=== PATIENT | female | born 1955 | race Caucasian/White ===

== ENCOUNTER 2024-11-12 07:32 | Day surgery (SDC) | payer MEDICARE, OTHER, SELFPAY ==
[2024-11-12] VITALS (15 sets, daily range): BP systolic 116–159; BP diastolic 60–118; BMI 33.3
[2024-11-12] MEDS: NSS 240 ML IV (08:22)
[2024-11-12] MEDS: NSS 1000 IV (12:44)
--- NOTE | 2024-11-12 18:23 | ITS.CL.PN ---
[facility] - Procedure Note
Procedure
Procedure Note:
CARDIAC CATHETERIZATION REPORT
Date of Procedure: 11/12/2024
Referring: Dr. Mekhi El MD
Indication: Severe aortic stenosis, preoperative evaluation prior to planned SAVR
PROCEDURE: coronary angiography
ACCESS: 6F right radial artery (closure: radial band)
CATHETERS
1. 6F JR4
2. 6F JL3.5
MODERATE SEDATION: 25 minutes of moderate sedation was utilized. An independent medical and health services manager was present to assist with and help manage the patient's level of consciousness and physiologic status.
CORONARY ANGIOGRAPHY
Dominance: right
LM: Large with mild distal tapering.
LAD: Large vessel giving rise to a early large bifurcating D1/ramus and moderate caliber D2 before wrapping around the apex. There is a focal 30-40% stenosis in the proximal aspect of the D1/ramus and otherwise mild luminal irregularities only.
LCx: Moderate caliber vessel giving rise to a single large branching OM.
RCA: Moderate caliber vessel giving rise to a small RPDA and several small RPL branches.
RADIATION: dose 359 mGy; DAP 21.1 Gy*cm2; fluoroscopy time 5.6 min
CONCLUSION: Nonobstructive coronary artery disease in a right dominant system
Copy to: Dr. Pepe Hernandez MD (equal opportunity specialist); Dr. Mekhi El MD (CT surgeon); Ana Cristina Harris NP (PCP)
Signed: Navid Miramontes MD, PhD
== END 2024-11-12 13:10 | disposition home or self-care (01) ==
LOC: CATH 07:32
PROVIDERS: ATTENDING PHYSICIAN Student in an Organized Health Care Education/Training Program; FAMILY PHYSICIAN Nurse Practitioner Adult Health; OTHER PHYSICIAN Internal Medicine Cardiovascular Disease
DX: I25.10 Atherosclerotic heart disease of native coronary artery without angina pectoris (principal); I35.0 Nonrheumatic aortic (valve) stenosis; I08.3 Combined rheumatic disorders of mitral, aortic and tricuspid valves; I10 Essential (primary) hypertension; E78.5 Hyperlipidemia, unspecified; Z79.82 Long term (current) use of aspirin
CPT/HCPCS: 99152; 99153; C1894; 93454; Q9967

== ENCOUNTER 2024-12-31 04:56 | Inpatient (IN) | payer MEDICARE, OTHER, SELFPAY ==
[2024-12-17 12:17] VITALS: BMI 32.4
[2024-12-17 12:59] LABS: Hematocrit 39.6 % (37.0-47.0); Hemoglobin 14.2 g/dL (12.0-16.0); Mean Corp Hgb Conc. 35.9 g/dL (33.0-37.0); Mean Corpuscular Volume 88.2 fL (81.0-99.0); Nucleated Red Blood Cells % 0 %; Platelet Count 246 10^3/uL (130-400); Red Cell Dist. Width 12.6 % (11.5-14.5)
[2024-12-17 13:12] LABS: INR 1.02; PT 13.7 Sec (11.4-14.6)
[2024-12-17 13:21] LABS: ALT (SGPT) 26 U/L (0-35); AST (SGOT) 24 U/L (14-36); Albumin 4.9 g/dl (3.5-5.0); Alkaline Phosphatase 51 U/L (38-126); Blood Urea Nitrogen 17 mg/dl (7-17); Calcium 9.8 mg/dl (8.4-10.2); Carbon Dioxide 20 mmol/L (22-30); Chloride 111 mmol/L (98-107); Estimated Creatinine Clearance 88 ml/min; Glucose 106 mg/dl (70-99); Potassium 4.7 mmol/L (3.5-5.1); Sodium 140 mmol/L (135-145); Total Protein 8.1 g/dl (6.3-8.2); eGFR > 60.00
[2024-12-17 13:34] LABS: Glycohemoglobin (HgbA1c) 5.3 % (4.0-5.6)
[2024-12-17 13:54] LABS: Urine Character Clear (Clear)
--- NOTE | 2024-12-17 14:22 | CM ---
spoke to pt in PAT's, we discussed preop AVR teaching including sternal and driving restrictions. She is prev indep, lives with her husb in a 2 story home with 6 steps to enter. she denies any dme's. she has the cardiac surgery educ book, siap and
instructions. she is agreeable to a f/u visit fromt he ct transitional care nurse after dc. plan is for AVR 12/31, cm role explained and all questions answered.
[2024-12-31] VITALS (7 sets, daily range): BP systolic 82–105; BP diastolic 43–69; BMI 32.4; BMI 31.9
--- NOTE | 2024-12-31 05:20 | PTCARENOTE ---
admitted pt into 2266. pt confirmed 2 showers and NPO since midnight. pt clipped, washed with CHG, abo obtained, full admission and med rec completed. all questions answered. pt did take lisinopril yesterday, CTPA notified. awaiting CVOR .
[2024-12-31] MEDS: MAGNESIUM OXIDE 500 MG PO (05:27)
[2024-12-31] MEDS: PROTONIX 40 MG PO (05:27)
[2024-12-31] MEDS: LOPRESSOR 25 MG PO (05:27)
--- NOTE | 2024-12-31 06:14 | W.CVOR.SURPR ---
CVOR Surgeon Immed Pre Op
-
I have examined this patient prior to performance of the scheduled procedure.
The patient's condition is unchanged from the time of the dictated/written History and
Physical and the patient is able to undergo the scheduled procedure.
AVR (biological)
[2024-12-31 07:38] LABS: ACT+ - POC 112 Seconds (82-134)
[2024-12-31 07:43] LABS: Urine Character Clear (Clear)
--- NOTE | 2024-12-31 08:21 | CM ---
Reviewed chart. Mrs. Alfaro is in the operating room today. Prior to admission she resdies with her spouse in a two story home with six steps to enter. Prior to admission she was independent with ambulation and adls. She does not have any DME
in the home. Medical work-up in progress. The discharge plan is to return home with her spouse and a home visit by the Transitional Care Nurse when medically stable.
[2024-12-31 08:22] LABS: ACT+ - POC 543 Seconds (82-134)
[2024-12-31 08:42] LABS: B.E. - POC -2.0 mmol/L; Glucose - POC 120 mg/dl (70-99); HCO3 - POC 23 mmol/L (21-28); Hematocrit - POC 34 % PCV (37-47); Hemodilution- POC No; Hemoglobin Calculated - POC 11.5; Ionized Calcium - POC 1.18 mmol/L (1.15-1.33); Lactate - POC 0.95 mmol/L (0.36-0.75); O2 Saturation %Calculated-POC 97.1 % (94-98); PCO2 - POC 40 mmHg (35-48); PO2 - POC 94 mmHg (83-108); Potassium - POC 3.7 mmol/L (3.5-5.1); Sodium - POC 143 mmol/L (136-145); Specimen Type - POC Arterial; pH - POC 7.37 (7.35-7.45)
[2024-12-31 08:58] LABS: ACT+ - POC 629 Seconds (82-134)
[2024-12-31 09:36] LABS: B.E. - POC 1.6 mmol/L; Glucose - POC 152 mg/dl (70-99); HCO3 - POC 25 mmol/L (21-28); Hematocrit - POC 31 % PCV (37-47); Hemodilution- POC Yes; Hemoglobin Calculated - POC 10.5; Ionized Calcium - POC 0.94 mmol/L (1.15-1.33); Lactate - POC 0.38 mmol/L (0.36-0.75); O2 Saturation %Calculated-POC 99.9 % (94-98); PCO2 - POC 35 mmHg (35-48); PO2 - POC 331 mmHg (83-108); Potassium - POC 5.3 mmol/L (3.5-5.1); Sodium - POC 141 mmol/L (136-145); Specimen Type - POC Arterial; pH - POC 7.46 (7.35-7.45)
[2024-12-31 09:46] LABS: ACT+ - POC 145 Seconds (82-134)
[2024-12-31 09:59] LABS: B.E. - POC -1.5 mmol/L; Glucose - POC 187 mg/dl (70-99); HCO3 - POC 24 mmol/L (21-28); Hematocrit - POC 26 % PCV (37-47); Hemodilution- POC Yes; Hemoglobin Calculated - POC 8.9; Ionized Calcium - POC 1.32 mmol/L (1.15-1.33); Lactate - POC 1.99 mmol/L (0.36-0.75); O2 Saturation %Calculated-POC 83.4 % (94-98); PCO2 - POC 43 mmHg (35-48); PO2 - POC 50 mmHg (83-108); Potassium - POC 4.7 mmol/L (3.5-5.1); Sodium - POC 142 mmol/L (136-145); Specimen Type - POC Arterial; pH - POC 7.35 (7.35-7.45)
[2024-12-31 10:10] LABS: B.E. - POC -2.0 mmol/L; Glucose - POC 171 mg/dl (70-99); HCO3 - POC 24 mmol/L (21-28); Hematocrit - POC 26 % PCV (37-47); Hemodilution- POC Yes; Hemoglobin Calculated - POC 8.7; Ionized Calcium - POC 1.24 mmol/L (1.15-1.33); Lactate - POC 2.06 mmol/L (0.36-0.75); O2 Saturation %Calculated-POC 97.4 % (94-98); PCO2 - POC 44 mmHg (35-48); PO2 - POC 102 mmHg (83-108); Potassium - POC 4.6 mmol/L (3.5-5.1); Sodium - POC 142 mmol/L (136-145); Specimen Type - POC Arterial; pH - POC 7.34 (7.35-7.45)
--- NOTE | 2024-12-31 10:29 | W.PN.CT.SURG ---
CT Surgery Operative Note
-
CARDIAC SURGERY OPERATIVE REPORT
Preoperative Diagnosis: Aortic valve stenosis with symptoms
Postoperative Diagnosis: Same
Procedure(s) Performed:
1. Ajit sternotomy the third intercostal space, T'd to the right
2. Surgical aortic valve replacement [27 mm bioprosthesis]
3. Percutaneous femoral venous cannulation under KATT guidance and Seldinger technique
4. Placement of temporary ventricular pacing wire
5. Transesophageal echocardiography
Date of Surgery: 12/31/2024
Comorbidities:
1. Severe aortic valve stenosis, functional bicuspid
2. Hypertension
3. Hyperlipidemia
4. History of PVCs and NSVT, status post ablation
5. Morbidly obese BMI of 32
Attending Surgeon: Mekhi El MD, MS
Scrub and Circulating RNs: Collette Lees RN, Nabila López RN
Assistants: ANAID Larose
Anesthesiology: Brian Keys MD and Yeimy Varela CRNA
Processing Clerk: Dakota Palumbo CCP
Anesthesia: GETA
EBL: per perfusion records
Products: None
CPB Time: 61 minutes
Aortic Cross Clamp Time: 53 minutes
Indication(s) for Procedures: This is a 69-year-old female who had increasing shortness of breath with activity and is found to have severe aortic valve stenosis. Her mean gradient was well over 50 and given her good clinical state and relatively
young age, she was referred for surgery as part of her lifetime management for her severe aortic valve stenosis.
Aortic Valve Description: Heavily calcified aortic valve leaflets with infiltration into the annulus particularly towards the aorto mitral curtain. There was bulky left right coronary cusp fusion. The left and right coronary ostia in the normal
anatomic positions.
Findings: Her left ventricular ejection fraction preoperatively was normal at 60% with no significant regional wall motion abnormalities. She did have a mild to moderate degree of left ventricular hypertrophy that was concentric. Following surgery
her EF remained the same at 60 to 65% with no new regional wall motion abnormalities. Aortic valve was heavily calcified with infiltration into the annulus. This was particularly bad towards the aorto mitral curtain which was debrided accordingly.
A total of 13 nonpledgeted 2-0 TiCron sutures were placed circumferentially from LVOT through annulus through sewing cuff with a 27 mm bioprosthetic valve. This was then parachuted into place and secured with core knots. The aorta was closed in
double layer in the usual fashion. There was no paravalvular leak at the conclusion of the case. Cardiac function was normal after short period of ventricular pacing she was back into her sinus rhythm in the 50s to 60s. She did not require any
blood products and was not requiring any inotropic support. In fact she was hypertensive requiring vasodilatory agents.
Specimen(s): Aortic valve leaflet.
Prosthesis:
1. 27 mm Jack [employer]'s Resilia aortic valve, serial #[id number].
Description of Procedure: The patient was taken to the operating room. Their identity and procedure to be performed were verified and they were positioned supine on the operating table. Induction via general anesthesia with endotracheal intubation
was performed and central venous access and arterial monitoring were inserted. A preoperative transesophageal echocardiogram was performed to assess cardiac function and valvular function. The patient was then prepped and draped from chin to feet in
a sterile fashion. A preoperative time-out was performed with all members of the team present. A upper midline chest incision was performed along with ajit sternotomy. The innominate vein was isolated. Full heparinization was given (a total of
40,000 units). We created a pericardial well. The aortic cannulation site was chosen where it was soft, pliable, and free of calcium. The EOPA cannula was used with KATT guidance and serial dilations. Common femoral vein access was done under
ultrasound guidance using Seldinger technique. Venous cannulation was done under KATT guidance. The arterial cannula was inserted in the ascending aorta. The arterial cannula line had an appropriate bounce and correlating pressures with test dosing.
Next, a root vent/antegrade cannula was inserted into the ascending aorta. The ACT was confirmed to be over 400 and retrograde autologous priming was performed before commencing cardiopulmonary bypass. The pulmonary artery was away from
the aorta to facilitate a clamp site and aortomy. The aortic cross-clamp was applied after decreasing the flow on the bypass and mean arterial pressure. A total of 1.2L initial dose of antegrade Del-Nido cardioplegia solution was given and planned
for re-dosing every 75 minutes as necessary. There was rapid electro-mechanical arrest of the heart at 400 cc of cardioplegia. I did have to intermittently vent through the root vent in order to decompress the LV as there was a mild degree of
aortic valve insufficiency. The left ventricle was observed for distention on echocardiogram and manual palpation. Cold slush was placed into the pericardial well and cooled to 34 degrees centigrade.
Carbon dioxide was used to flood the field. We manually identified the location of the right coronary take off. An aortotomy was made approximately 2cm above the sinotubular junction. The location of both left and right coronary vessels were
visualized in the root.The leaflets were excised and sent for pathological assessment. The annulus was debrided of any calcium being mindful of the annulus and membranous septum. The root and left ventricular outflow tract were thoroughly irrigated
to remove any debris. A total of 13 Non-pledgeted 2-0 TiCron annular sutures were placed [id number] circumferentially. These were brought through the sewing cuff of the prosthetic valve which as then parachuted into place. The left and right
coronary ostia were visualized and were unobstructed by the valve. A Cor-Knot device was used to secure the annular sutures. The valve was inspected and was well seated. The aortotomy was approximated with 4-0 prolene in two layers. De-airing
maneuvers were performed and temporary bipolar ventricular pacing wires were placed on the base of the right ventricle. The patient was placed in a Trendelenburg position and flows on bypass were lowered. The aortic cross clamp was removed and flows
were slowly brought back up. The aortotomy appeared hemostatic. Transesophageal echocardiography revealed no paravalvular leak and appropriate prosthetic function. Once de-airing was satisfactory, the root vent was removed. After verifying
acceptable parameters, we initiated weaning from cardiopulmonary bypass. Once we were off cardiopulmonary bypass, the venous cannula was clamped and removed. A test dose of protamine was administered and the patient was monitored for any adverse
reaction before resuming protamine. Once half of the protamine dose was delivered, pump suckers were turned off and the systolic blood pressure was lowered for aortic decannulation. The aortic cannula was removed and pursestrings were tied down. All
cannulation sites were oversewn with a 4-0 prolene. The aortotomy suture line was inspected and hemostasis was confirmed. Mediastinal hemostasis was obtained. One 19Fr Johnnie drains were placed within the pericardium. The sternum was approximated
with 2 #7 stainless steel wires and 2 #7 double stainless steel wiresl. Fascia was approximated with #1 vicryl suture. The subcutaneous, dermis and epidermis were closed in layers in a running fashion. The femoral venous access site was closed with
a large buttressed pursestring. The skin wound was cleansed and dressed.
All instrument, sponge, and needle counts were confirmed to be correct x 2 at the end of the operation. The patient was transferred to the cardiac intensive care unit in critical but stable condition.
I, Dr. Mekhi El, was present, scrubbed for, and performed all critical elements of this procedure.
Mekhi El MD, MS
Cardiothoracic Surgeon
[facility]
This operative dictation was created using the [employer] dictation system. Please excuse any grammatical, typographical, or 'sound alike' errors
[2024-12-31 10:47] LABS: Hematocrit 29.0 % (37.0-47.0); Hemoglobin 10.7 g/dL (12.0-16.0); Platelet Count 156 10^3/uL (130-400)
[2024-12-31 10:48] LABS: B.E. -3.7 mmol/L; HCO3 22.1 mmol/L (21-28); O2 Saturation % 99.3 % (94-98); PCO2 42 mmHg (32-35); PO2 99 mmHg (83-108); Potassium 4.7 mMOL/L (3.5-5.1); Sodium 136 mMOL/L (136-145)
[2024-12-31 10:48] LABS: Glucose - Point of Care 176 mg/dl (70-99)
[2024-12-31 10:56] LABS: INR 1.45; PT 17.9 Sec (11.4-14.6)
[2024-12-31 10:57] LABS: APTT 33.1 Sec (23.4-35.0)
[2024-12-31] MEDS: NSS 500 IV (11:16)
[2024-12-31] MEDS: CALCIUM GLUCONATE 100 IV (11:16)
[2024-12-31] MEDS: LR 250 ML IV (11:16)
[2024-12-31 11:22] LABS: Blood Urea Nitrogen 17 mg/dl (7-17); Estimated Creatinine Clearance 75 ml/min; Glucose 162 mg/dl (70-99); Magnesium 2.9 mg/dl (1.6-2.3)
[2024-12-31] MEDS: NEURONTIN PO ×2 (11:26→17:04)
--- NOTE | 2024-12-31 11:44 | W.PN.CD ---
Addendum entered and electronically signed by John Ramon MD 12/31/24 13:41:
Patient seen and examined in collaboration with ANIMAL CONTROL SPECIALIST; agree with below.
- Patient underwent bioprosthetic aortic valve replacement today; currently intubated, on low-dose Levophed.
- alarm security or surveillance monitor.
- Routine postsurgical care as directed by CT surgery.
- Will follow.
Original Note:
Today's Communication / Plan
-
post-op management per CTS, weaning off meds/vent
Impression / Plan
-
Severe - s/p bio AVR on 12/31/[address] El.
- post-op management per CTS.
- still intubated/sedated on vent.
- hemodynamically stable.
HTN - stable.
- on Levophed, weaning.
- monitor.
HLD - stable.
- on Lipitor, continue.
Physical Exam
Vital Signs/Labs
Vital Signs
Temp Pulse Resp Pulse Ox
96.9 F L 61 12 98
12/31/24 11:00 12/31/24 10:45 12/31/24 10:45 12/31/24 10:45
12/30/24 12/31/24 01/01/25
06:59 06:59 06:59
Actual Weight 174 lb 6.17 oz
12/31/24 10:34
PT 17.9 Sec (11.4-14.6) H 12/31/24 10:34
INR 1.45 12/31/24 10:34
APTT 33.1 Sec (23.4-35.0) 12/31/24 10:34
Magnesium 2.9 mg/dl (1.6-2.3) H 12/31/24 10:34
Physical Exam
Constitutional: Comfortable
EENT: Anicteric
Cardiovascular: Rhythm & rate is regular
Respiratory: Other (intubated on vent/sedated)
GI: Soft and Normal bowel sounds
Neuro/Psych: Other (sedated on vent intubated)
Other: Skin (warm, dry)
Data Reviewed
-
Date of Service: December 31, 2024
Medical Decision Making: Reviewed Test Results
EKG: Tracing Personally Visualized and interpreted
Medical Tests (PFT, Pathology etc): Report Reviewed by me (cath 11/12/24 no obstructive CAD)
Labs: Labs Reviewed by me
[2024-12-31 11:59] LABS: Glucose - Point of Care 139 mg/dl (70-99)
--- NOTE | 2024-12-31 12:00 | PTCARENOTE ---
Pt received from CVOR @ 1045; Sedated and intubated;Pupils round, reactive, and equal; Normal sinus rhythm on monitor w/ 1; VSS; Epicardial pacemaker present? with pacer settings ?/?/?; Venous sheath present?; DP and radial pulses present; Lungs
clear; ETT size 8 positioned and secured at 22 cm right lip; Ventilator settings SIMV 12/400/8 FiO2 60%; CTx1 to -20 cm wall suction draining bloody drainage - no air leak, tidaling, or crepitus noted; Normoactive BS; Martinez catheter in place
draining red urine;Sternal Midline Incision CDI; Edema present x4 extremeties ; A-line in left radial artery - line zeroed and level; Bayron present in right Cordis; Levo/insulin/precedex infusing; See nursing flowsheets for further details
[2024-12-31 13:18] LABS: Glucose - Point of Care 118 mg/dl (70-99)
--- NOTE | 2024-12-31 13:28 | W.PN.UPDATE ---
Update Note
Progress Note Update
69-year-old female electively admitted on 12/31/2024 for aortic valve replacement due to severe aortic stenosis.
IV fluids: 1300
U.O.:� 500
Blood:� none
Wires:� bipolar V-wire
Drips: Precedex, Levo @ 1
�
NEURO: sedated, pupils +2mm B/L
RESP: #8OT @20cm> 450/60%//8. Lungs clear B/L. #19F Johnnie mediastinal/L pleural (10cc on arrival) chest tubes to -20cm suction. Sanguineous drainage
CV: RRR +S1, S2, no S3, no�rub, no murmur. Dermabond to median mini-sternotomy. RIJ w/Calvin locked @ 45cm. PA 45/13; CVP 10
ABD: obese, round, soft, no BS
EXT: no edema, +2/4 DP pulses B/L, no femoral bruit, XX radial A-line intact; Right groin stitch intact
: Martinez with clear yellow urine
�
A/P: POD #0 s/p mini sternotomy AVR #27mm Inspiris Resilia
KATT: EF�
- wean and extubate
- will need instruction regarding antibiotic prophylaxis for dental and invasive procedures
- insulin infusion x24h (not diabetic)
�
# acute surgical blood loss anemia-expected
- initial HB 10.7>trend CBC
�
�# HTN
- Cardene>transition to beta-cathie when tolerating solids
# Hyperlipidemia
- resume�home Lipitor 30mg daily
# Class I obesity (BMI 32)
- need nutrition counseling regarding caloric intake restriction
# Osteoporosis
- continue Fosamax 70mg weekly
[2024-12-31 14:01] LABS: Glucose - Point of Care 129 mg/dl (70-99)
[2024-12-31 14:18] LABS: B.E. -2.8 mmol/L; HCO3 21.9 mmol/L (21-28); O2 Saturation % 100.0 % (94-98); PCO2 37 mmHg (32-35); PO2 114 mmHg (83-108); Potassium 4.6 mMOL/L (3.5-5.1); Sodium 137 mMOL/L (136-145)
[2024-12-31 14:21] LABS: Hematocrit 29.6 % (37.0-47.0); Hemoglobin 10.8 g/dL (12.0-16.0); Platelet Count 145 10^3/uL (130-400)
[2024-12-31 15:16] LABS: Glucose - Point of Care 115 mg/dl (70-99)
--- NOTE | 2024-12-31 15:34 | CON.INTV ---
Addendum entered and electronically signed by Pily Almeida MD 01/01/25 12:53:
01/01
Patient transferred to telemetry service. Agency Trainer service will sign off, please call as needed
Original Note:
Consultation
Consultation Request
Date/Time Consultation Requested: 12/31/2024
Date/Time Consultation Performed: 12/31/2024
Medical History
-
Chief Complaint: Aortic stenosis
History of Present Illness:
Patient is a [id number]-year-old female with known history of hypertension, hyperlipidemia as well as aortic stenosis with mild proximal ascending aortic dilation. Patient also has prior history of SVT s/p ablation. Patient was evaluated by
surgical service as outpatient and was recommended to have surgical AVR. Patient was admitted to the hospital for elective aortic valve replacement with a bioprosthesis, and postop surgery was admitted to cardiovascular ICU. Agency Trainer consult
was requested for further input.
Past medical history. Hypertension, hyperlipidemia, severe aortic stenosis, mild ascending aortic dilation, paroxysmal SVT s/p ablation. Osteoarthritis
Surgical history. Ablation for paroxysmal SVT, 2013.
Family history. Heart disease in father.
Social history.
Allergies / Home Medications
Allergies
Allergy/AdvReac Type Severity Reaction Status Date / Time
No Known Allergies Allergy Unverified 12/15/24 08:50
Home Medications
�Medication �Instructions �Recorded �Confirmed �Last Taken �Type
alendronate 70 mg tablet 70 mg PO FR Osteoporosis 11/12/24 12/31/24 12/30/24 10:00 History
atorvastatin 20 mg tablet 20 mg PO QPM High Cholesterol 11/12/24 12/31/24 12/30/24 08:00 History
lisinopril 10 mg tablet 10 mg PO DAILY Blood Pressure 11/12/24 12/31/24 12/30/24 08:00 History
metoprolol succinate 50 mg 50 mg PO BID Blood Pressure 11/12/24 12/31/24 12/30/24 18:00 History
tablet,extended release 24 hr
multivitamin 1 tab PO DAILY Supplement 11/12/24 12/31/24 12/24/24 08:00 History
vitamin B complex (Complex B-100 1 tab PO DAILY Supplement 11/12/24 12/31/24 12/30/24 08:00 History
tablet,extended release)
calcium polycarbophil 625 mg 1,250 mg PO DAILY Gastrointestinal 12/15/24 12/31/24 12/30/24 08:00 History
tablet (FiberCon) Issue
omega 2-vrc-ooh-fish oil 1,200 mg 2,400 cap PO DAILY Supplement 12/15/24 12/31/24 12/30/24 08:00 History
(144 mg-216 mg) capsule (Fish Oil)
Review of Systems
-
Unable to Obtain full review of systems at this time due to: Patient Intubation
Vitals / Labs / Diagnostic Testing
Vital Signs
Temp Pulse Resp Pulse Ox
97.7 F 65 19 100
12/31/24 14:00 12/31/24 14:15 12/31/24 14:15 12/31/24 14:15
Lab Data
12/31/24 14:08
12/31/24 10:34
Laboratory Results
12/31/24 12/31/24
10:34 14:08
PT 17.9 H
INR 1.45
APTT 33.1
pH 7.33 L 7.38
pCO2 42 H 37 H
pO2 99 114 H
HCO3 22.1 21.9
O2 Delivery Level
Diagnostic Testing:
Physical Exam
-
HEENT: Normocephalic
Cardiovascular: S1/S2 and Peripheral Edema (1+ pedal edema )
Respiratory: Non-Labored Respirations
GI: Soft and Non Distended
Neurology: Awake and Other (Drowzy but responds to stimulation )
Skin: Warm
General: Comfortable
Assessment
-
Patient is a 69-year-old female with known history of severe aortic stenosis, s/p surgical aortic valve replacement, bioprosthetic, POD # 0
Titrated off pressors per protocol. Currently MAP of 71, CVP of 7.
ECHO reviewed with normal function
PA catheter readings reviewed, , mean of 20.
Management of chest tubes per primary service
Intubated/off Precedex now, tolerating SBT well
Pain control
RASS goal of 0 to -1
Current vent settings: Pressure support ventilation, 5/5. Pulling about 450 tidal volume, respiratory rate around 14/min.
AB.5/26/135.
CXR with no obvious opacities/infiltrates, low lung volumes, ETT in good position, lines/tubes in place
Anticipate extubation soon
Maintain supplement oxygen as needed
No prior history of pulmonary disease
Prior PFTs reviewed
Can add nebulizers if needed
Aspiration precautions
Encouraged incentive spirometry, OOB/ambulation/early mobility
Advance diet as tolerated following extubation
GI prophylaxis: Protonix
Monitor critical I/O's
Martinez/chest tube output
Hb/platelets postoperatively, mild drift
Trend CBC for now
Can transfuse if indicated for Hb <7, plt <50 in surgical patients
DVT prophylaxis including SCDs
Insulin protocol initiated and ongoing
Transition to SQ/off as indicated per team
Other medical diagnoses:
- HTN
- HLD
- H/o Paroxysmal SVT, s/p ablation 2013
Critical Care time 62 mins -- The patient is admitted for acute critical illness for the treatment of vital organ failure and/or prevention of further life-threatening conditions. Total care includes time spent in review of history, physical exam,
medications, hemodynamic/ventilator parameters, laboratory data, imaging and discussion with house staff, pharmacy, respiratory therapy, merchandise adjustment clerk, and nursing
Data:
Chest CT 12/2024: Ascending aorta has short axis diameter of 3.9 cm at the level of the right main pulmonary artery, in the upper range of normal, top normal considered 4.0 cm.
The lungs appear clear.
Mild fatty infiltration of the visualized liver.
[facility] 10/2024: CONCLUSION: Nonobstructive coronary artery disease in a right dominant system
ECHO 09/2024: 1. NL BiV SYST FXN.
2. SEVERE . (SHEA 0.9; MEAN 55 mm Hg).
[2024-12-31 16:11] LABS: B.E. -1.9 mmol/L; HCO3 20.3 mmol/L (21-28); O2 Saturation % 100.0 % (94-98); PCO2 26 mmHg (32-35); PO2 135 mmHg (83-108)
[2024-12-31 16:18] LABS: O2 Therapy %Oxygen/Room Air 40
--- NOTE | 2024-12-31 16:45 | PTCARENOTE ---
PT extubated @ 1630 to 6L NC, PT AAOx4 responding appropriately and following all commands
[2024-12-31 16:57] LABS: Glucose - Point of Care 119 mg/dl (70-99)
[2024-12-31] MEDS: DILAUDID 0.5 MG IV ×3 (16:59→23:04)
[2024-12-31] MEDS: LOW STRENGTH ASPIRIN 81 MG PO (16:59)
[2024-12-31 19:26] LABS: Glucose - Point of Care 107 mg/dl (70-99)
[2024-12-31] MEDS: LIPITOR 20 MG PO (19:54)
[2024-12-31] MEDS: ANCEF 5 IV (19:54)
[2024-12-31] MEDS: SENOKOT-S 1 TABLET PO (19:54)
[2024-12-31] MEDS: TYLENOL 1000 MG PO (20:30)
[2024-12-31] MEDS: ROXICODONE 5 MG PO (20:32)
[2024-12-31] MEDS: ZOFRAN 4 MG IV (21:08)
[2024-12-31] MEDS: BACTROBAN 2% OINTMENT 1 APPLIC NASAL (21:09)
[2024-12-31 21:27] LABS: Glucose - Point of Care 102 mg/dl (70-99)
[2024-12-31] MEDS: PACERONE PO (22:46)
[2024-12-31] MEDS: TYLENOL PO (22:49)
[2024-12-31] MEDS: NEURONTIN 100 MG PO (23:03)
[2024-12-31] MEDS: FLEXERIL 5 MG PO (23:03)
[2024-12-31 23:04] LABS: Glucose - Point of Care 112 mg/dl (70-99)
[2025-01-01] VITALS (19 sets, daily range): BP systolic 89–131; BP diastolic 49–91; PULSE 89; O2SAT 91; BMI 32.8
--- NOTE | 2025-01-01 00:29 | W.PN.CT ---
Addendum entered and electronically signed by Wil Arias MD 01/01/25 09:26:
[facility] 2267:� POD#1 s/p AVR (#27 Inspiris)
No major overnight events.� Cardene weaned to OFF.� De-lined.� AVSS.� 2L.� GTTS: none.� CT: M: 100/195.� UO: 440/970.� Neuro: intact.
-��������� D/C galeana
-��������� Maintain mediastinal CTs
-��������� D/C insulin gtt
-��������� Diruesis later today versus tomorrow
-��������� OOB/IS/ambulate
Original Note:
Today's Communication / Plan
-
Plan:
-No major issues overnight. Hemodynamically and neurologically intact without focal deficits
-Successfully extubated 12/31/24 @ 1715
-Was on and off Cardene gtt last night. Currently off all drips but insulin per protocol
-Last CI 2.89, MVO2 65.2%, U/O since OR 1070 mL
-A bit orthostasis when OOB this AM. Will place BB on hold
-Cont. current meds (ASA, Plavix, Amiodarone, Lopressor, Lipitor)
-Monitor chest tube output: med/pericardium 35/35
-D/C'd Jennifer and Bouton @ 0500
-D/C'd galeana catheter @ 0600
-Maintain temporary wires (will pull likely tomorrow)
-Encourage use of IS
-Wean off of O2 as tolerated
-OOB into chair/Ambulate
-Likely home 1-2 days
Assessment / Plan
-
Assessment:
-S/P Ajit sternotomy the third intercostal space, T'd to the right/ Surgical aortic valve replacement [27 mm bioprosthesis], by Dr. El, 12/31/24, pod#1
-Severe aortic valve stenosis, functional bicuspid
-LVEF 55-60%
-Hypertension
-Hyperlipidemia
-History of PVCs and NSVT, status post ablation, 2013
-Class 1 obesity BMI of 32
-OA
-Acute postop blood loss/Anemia (stable without transfusion)
-Acute postop atelectasis
-Acute postop respiratory alkalosis
-Acute postop hypovolemia with subsequent hypervolemia
-Acute postop orthostatic hypotension
Discussed patient care with: Cardiology, Nursing, Respiratory Therapy, Pharmacy and Care Team
Subjective
Procedure
S/P Ajit sternotomy the third intercostal space, T'd to the right/ Surgical aortic valve replacement [27 mm bioprosthesis], by Dr. El, 12/31/24
-
Date of Service: January 01, 2025
Pt c/o mild incisional pain, otherwise feels well
Objective Data
-
PT 17.9 Sec (11.4-14.6) H 12/31/24 10:34
INR 1.45 12/31/24 10:34
APTT 33.1 Sec (23.4-35.0) 12/31/24 10:34
Vital Signs
Vital Signs
Temp Pulse Resp BP Pulse Ox
98.3 F 77 16 82/43 1
12/31/24 23:00 12/31/24 23:00 12/31/24 23:00 12/31/24 23:00 12/31/24 23:00
CT Intake/Output/Weight
12/31/24 12/31/24 01/01/25
06:59 18:59 06:59
Intake Total 1396.6 / 1859.5 462.9 / 1859.5
Output Total 625 / 910 285 / 910
Balance 771.6 / 949.5 177.9 / 949.5
SaO2: 98 (2L)
Physical Exam
-
General: Awake, Oriented and AOx3
Cardiovascular: Regular rate & rhythm, No Murmurs, No Rub and No Gallop
Respiratory: Decreased Breath Sounds
Sternum: Stable
Incision: Clean, Dry, Intact and Dressing Intact
Extremities: Other (+trace edema)
Data Reviewed
-
Lab Results: Results Reviewed
Medications: Active Meds Reviewed
Chest X-Ray: Report Reviewed and Image Reviewed
ECG: Report Reviewed and Image Reviewed
[2025-01-01 00:52] LABS: Glucose - Point of Care 111 mg/dl (70-99)
[2025-01-01] MEDS: ROXICODONE 5 MG PO ×3 (01:09→13:44)
[2025-01-01] MEDS: ANCEF 5 IV ×2 (01:10→10:27)
[2025-01-01 03:09] LABS: Glucose - Point of Care 90 mg/dl (70-99)
[2025-01-01] MEDS: DILAUDID 0.5 MG IV (03:09)
[2025-01-01 03:48] LABS: INR 1.17; PT 15.2 Sec (11.4-14.6)
[2025-01-01 03:51] LABS: Blood Urea Nitrogen 23 mg/dl (7-17); Calcium 8.3 mg/dl (8.4-10.2); Carbon Dioxide 24 mmol/L (22-30); Chloride 111 mmol/L (98-107); Estimated Creatinine Clearance 87 ml/min; Glucose 84 mg/dl (70-99); Magnesium 2.3 mg/dl (1.6-2.3); Potassium 4.3 mmol/L (3.5-5.1); Sodium 140 mmol/L (135-145); eGFR > 60.00
[2025-01-01 03:56] LABS: Hematocrit 27.2 % (37.0-47.0); Hemoglobin 9.8 g/dL (12.0-16.0); Mean Corp Hgb Conc. 36.0 g/dL (33.0-37.0); Mean Corpuscular Volume 88.9 fL (81.0-99.0); Platelet Count 132 10^3/uL (130-400); Red Cell Dist. Width 12.7 % (11.5-14.5)
[2025-01-01 05:39] LABS: Glucose - Point of Care 129 mg/dl (70-99)
[2025-01-01] MEDS: BACTROBAN 2% OINTMENT 1 APPLIC NASAL ×2 (06:35→20:05)
[2025-01-01] MEDS: TYLENOL 1000 MG PO ×3 (06:35→22:11)
[2025-01-01] MEDS: CALCIUM GLUCONATE 100 IV (06:45)
[2025-01-01 07:06] LABS: Glucose - Point of Care 118 mg/dl (70-99)
--- NOTE | 2025-01-01 07:39 | W.PN.ANS.POP ---
Anesthesia Post Operative
- Anesthesia Post Op Note
Vital Signs Stable-See Nursing Note: Yes
Airway Patent: Yes
Adequate Pain Control: Yes
Change in Mental Status: No
Current Postoperative Nausea & Vomiting: No
Anesthesia Complications: No
General Anesthetic Recall: No
Unplanned Admission: No
Post Op Hydration Adequate: Yes
--- NOTE | 2025-01-01 08:08 | PTCARENOTE ---
Pt received from outgoing RN, POD 1 AVR, oob in chair, insulin gtt till later today, NSR, VSS, RA, MS CT, Vwire connected to lissett smalls this AM DTV @ 04/1300, rt ROSIO lee.
[2025-01-01 08:45] LABS: Glucose - Point of Care 104 mg/dl (70-99)
[2025-01-01] MEDS: LIDOCAINE 4% PATCH TOPICAL (08:45)
[2025-01-01] MEDS: PROTONIX 40 MG PO ×2 (09:00→09:01)
[2025-01-01] MEDS: MAGNESIUM OXIDE 500 MG PO ×2 (09:00→20:04)
[2025-01-01] MEDS: NEURONTIN PO ×3 (09:00→15:46)
[2025-01-01] MEDS: FLEXERIL 5 MG PO (09:00)
[2025-01-01] MEDS: PACERONE 200 MG PO ×3 (09:01→22:12)
[2025-01-01] MEDS: SENOKOT-S 1 TABLET PO ×2 (09:01→20:02)
[2025-01-01] MEDS: FEOSOL 325 MG PO (09:01)
[2025-01-01] MEDS: VITAMIN C 500 MG PO (09:01)
[2025-01-01] MEDS: LOW STRENGTH ASPIRIN 81 MG PO (09:01)
[2025-01-01] MEDS: NSS IV (09:41)
[2025-01-01 11:18] LABS: Glucose - Point of Care 155 mg/dl (70-99)
[2025-01-01] MEDS: LOPRESSOR 12.5 MG PO ×2 (11:41→20:04)
--- NOTE | 2025-01-01 12:13 | PTCARENOTE ---
Pt reassessment unchanged from previous, vss, ra, rt IJ cordis, Vwire insulated, MSctx2, dced insulin gtt.
[2025-01-01] MEDS: LASIX 40 MG IV (12:31)
--- NOTE | 2025-01-01 12:38 | CON.CAR ---
Consultation
Consultation Request
Date/Time Consultation Requested: 12/31/24
Date/Time Consultation Performed: 01/01/25
Requesting Provider: Kathleen Birmingham
Performing Provider: Yenny Lopez
Reason for Consultation: s/p AVR
Medical History
-
Chief Complaint: S/p AVR
History of Present Illness:
Patient is a 69-year-old pleasant female, with past medical history of essential hypertension, hyperlipidemia, SVT s/p ablation, aortic stenosis with mild proximal ascending aorta dilatation who was admitted to the hospital for elective aortic valve
replacement with a bioprosthesis. Admitted to cardiovascular ICU for postop recovery.
Cardiology consultation requested for follow-up of AVR.
She has been feeling well, denies any shortness of breath, reports mild incisional pain but overall looks good.
Past Medical History
Past Medical History: Arrhythmias (SVT s/p ablation), HTN, Hypercholesterolemia and Valvular Disease (Swear aortic stenosis SHEA 0.9 :mean 55 mmHg s/p bioprosthetic AVR on 12/31/2024, mild TR mild MR, metabolic syndrome, arthritis)
Past Surgical History: Cardiac (S/p ablation 2013 for paroxysmal SVT, s/p AVR 01/01/2025)
Social History
Tobacco: Non-Smoker
Alcohol: Occasional
Personal:
Living: With Family
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
Family History
Family History: Other (Mother has diabetes hypertension, father 85 years with hypertension/heart disease)
Allergies / Home Medications
Allergy/AdvReac Type Severity Reaction Status Date / Time
No Known Allergies Allergy Unverified 12/15/24 08:50
�Medication �Instructions �Recorded �Confirmed �Type
alendronate 70 mg tablet 70 mg PO FR Osteoporosis 11/12/24 12/31/24 History
atorvastatin 20 mg tablet 20 mg PO QPM High Cholesterol 11/12/24 12/31/24 History
lisinopril 10 mg tablet 10 mg PO DAILY Blood Pressure 11/12/24 12/31/24 History
metoprolol succinate 50 mg 50 mg PO BID Blood Pressure 11/12/24 12/31/24 History
tablet,extended release 24 hr
multivitamin 1 tab PO DAILY Supplement 11/12/24 12/31/24 History
vitamin B complex (Complex B-100 1 tab PO DAILY Supplement 11/12/24 12/31/24 History
tablet,extended release)
calcium polycarbophil 625 mg 1,250 mg PO DAILY Gastrointestinal 12/15/24 12/31/24 History
tablet (FiberCon) Issue
omega 7-aat-tgx-fish oil 1,200 mg 2,400 cap PO DAILY Supplement 12/15/24 12/31/24 History
(144 mg-216 mg) capsule (Fish Oil)
Review of Systems
-
All other systems: Negative unless noted
Physical Exam
Vital Signs
Temp Pulse Resp BP Pulse Ox
97.6 F 90 18 125/59 95
01/01/25 12:00 01/01/25 12:00 01/01/25 11:00 01/01/25 12:00 01/01/25 12:00
Lab Results
01/01/25 03:16
01/01/25 03:16
Physical Exam
General: No Apparent Distress and Comfortable
Respiratory: Clear; Negative Wheezes, Crackles or Rhonchi
Cardiac: S1/S2 and Regular Rhythm; Negative Murmur, Rub, Peripheral Edema or Calf Tenderness
GI: Soft and Non Tender
Musculoskeletal: No Clubbing and No Cyanosis
Skin: Warm, Dry and Other (Incision clean dry with intact dressing)
Neuro: Awake and AO x 3
Psych: Calm
Impression / Plan
-
Impression
Patient is a 69-year-old female with past medical history of hypertension, hyperlipidemia, SVT s/p ablation 2013, Severe - s/p bio AVR on 12/31/[address] El.
Cardiology consulted for postop follow-up.
Assessment/plan
#Severe aortic stenosis s/p bio AVR
- No major events overnight, hemodynamically stable
- Reports mild incisional pain
- PT/OT-started mild exercises today that helped her feel better
-On low-sodium diet
-On telemetry review, brief run of SVT, self terminated, will continue to monitor
-Continue to monitor telemetry
-Continue aspirin, atorvastatin, amiodarone, metoprolol
- Cardiology will continue to follow
# Postop acute blood loss anemia
-No blood transfusion required
-Hemoglobin 9.8, monitor and trend H&H
#Hypertension
- stable.
- Off vasopressors
- monitor.
#HLD
- stable.
- on Lipitor, continue.
--- NOTE | 2025-01-01 13:05 | W.PN.CD ---
Addendum entered and electronically signed by John Ramon MD 01/01/25 13:29:
Patient seen and examined in collaboration with PGY-2 Resident; agree with below.
- 69-year-old status-post bioprosthetic AVR on 12/31/2024:
- Sinus rhythm; very brief run of PSVT on telemetry.
- Exam: Heart regular rate and rhythm, normal S1-S2, no murmur/rub/gallop; lungs CTA bilaterally; abdomen soft; no edema.
- A/P:
- Status-post bioprosthetic AVR (12/31/2024): Hemodynamically stable. Continue routine postoperative care as directed by CT surgery.
- Hypertension: Blood pressure stable/controlled.
- Hyperlipidemia: Continue statin.
Original Note:
Documented by User: Federico Lantigua MD, Resident 01/01/25 13:10
Today's Communication / Plan
-
Continue to trend H & H
Continue telemetry
PT/OT
Impression / Plan
-
Impression
Patient is a 69-year-old female with past medical history of hypertension, hyperlipidemia, SVT s/p ablation 2013, Severe - s/p bio AVR on 12/31/[address] El.
Cardiology consulted for postop follow-up.
Assessment/plan
#Severe aortic stenosis s/p bio AVR
- No major events overnight, hemodynamically stable
- Reports mild incisional pain
- PT/OT-started mild exercises today that helped her feel better
-On low-sodium diet
-On telemetry review, brief run of SVT, self terminated, will continue to monitor
-Continue aspirin, atorvastatin, amiodarone, metoprolol
- Cardiology will continue to follow
# Postop acute blood loss anemia
-No blood transfusion required
-Hemoglobin 9.8, monitor and trend H&H
#Hypertension
- stable.
- Off vasopressors
- monitor.
#HLD
- stable.
- on Lipitor, continue.
Physical Exam
Vital Signs/Labs
Vital Signs
Temp Pulse Resp BP Pulse Ox
97.6 F 90 18 125/59 95
01/01/25 12:00 01/01/25 12:00 01/01/25 11:00 01/01/25 12:00 01/01/25 12:00
12/31/24 01/01/25 01/02/25
06:59 06:59 06:59
Actual Weight 81.2 kg
01/01/25 03:16
01/01/25 03:16
PT 15.2 Sec (11.4-14.6) H 01/01/25 03:16
INR 1.17 01/01/25 03:16
APTT 33.1 Sec (23.4-35.0) 12/31/24 10:34
Magnesium 2.3 mg/dl (1.6-2.3) 01/01/25 03:16
Physical Exam
Constitutional: No acute distress and Comfortable
Cardiovascular: Rhythm & rate is regular, Pedal edema is absent, Murmur/rub/gallop absent and Rub absent
Respiratory: Respiratory effort normal and Lungs clear to auscul.
GI: Soft and Non tender
Neuro/Psych: Alert and AO x 3
Other: Skin (warm dry, dressing dry and intact)
Data Reviewed
-
Date of Service: January 01, 2025

Documented by User: John Ramon MD 01/01/25 13:27
Data Reviewed
-
EKG: Tracing Personally Visualized and interpreted (Sinus rhythm, brief PSVT)
Medical Tests (PFT, Pathology etc): Discussed with Physician and Discussed with Nurse
Labs: Labs Reviewed by me
[2025-01-01] MEDS: FERRLECIT 110 MG IV (13:45)
--- NOTE | 2025-01-01 16:01 | PTCARENOTE ---
pt reassessment unchanged from previous, vss, ra, nsr, Rt Ij cordis, ambulate, voiding, pain management, msct x1
[2025-01-01] MEDS: TORADOL 15 MG IV ×2 (16:24→22:24)
[2025-01-01 16:34] LABS: Glucose - Point of Care 153 mg/dl (70-99)
[2025-01-01] MEDS: LIPITOR 20 MG PO (18:05)
[2025-01-01] MEDS: REMOVE LIDOCAINE PATCH REMOVE (20:05)
--- NOTE | 2025-01-01 20:27 | PTCARENOTE ---
Assumed care of patient at 1900. Patient found resting in bed at time of assessment. Patient is AOx4, follows commands appropriately, moves all extremities. Lung sounds are diminished at the bases, saO2 86% on RA placed on 3L via NC saO2 improved to
93%. Patient has one mediastinal chest tube draining red sanguineous to atrium with wall suction. Heart sound are audible, there is a rub present on auscultation, v wires are present but insulated, and patient is SR on the monitor. Pulses are normal
palpable and there is +1 BLE edema and +2 BUE edema. Patient has hypoactive BS in all four quadrants and is voiding in the bathroom. There is a sternal incision approx with surg adhesive ESTIVEN supported by surgical bra. Patient also has groin puncture
with 4x4 dressing that is CDI. There is a R IJ cordis receiving KVO and RA 18G PIV for intermittent infusion. Call rincon within reach.
[2025-01-01] MEDS: NEURONTIN 100 MG PO (22:11)
[2025-01-02] VITALS (11 sets, daily range): BP systolic 104–139; BP diastolic 53–93; BMI 32.5
--- NOTE | 2025-01-02 | PTCARENOTE ---
Patient reassessed. Remains SR on the monitor. Toradol for pain at HS. Ambulated to bathroom with assistx1 without incident. Call rincon within reach.
[2025-01-02] MEDS: ROXICODONE 2.5 MG PO ×2 (04:13→23:35)
[2025-01-02 04:42] LABS: Hematocrit 24.8 % (37.0-47.0); Hemoglobin 9.0 g/dL (12.0-16.0); Mean Corp Hgb Conc. 36.3 g/dL (33.0-37.0); Mean Corpuscular Volume 90.8 fL (81.0-99.0); Platelet Count 113 10^3/uL (130-400); Red Cell Dist. Width 12.8 % (11.5-14.5)
--- NOTE | 2025-01-02 04:53 | PTCARENOTE ---
Patient reassessed. Remains SR on the monitor. Toradolx1 and Hanh 2.5 for pain management. AM hygiene care provided. OOB to chair.
[2025-01-02 05:04] LABS: Blood Urea Nitrogen 25 mg/dl (7-17); Calcium 7.9 mg/dl (8.4-10.2); Carbon Dioxide 29 mmol/L (22-30); Chloride 109 mmol/L (98-107); Estimated Creatinine Clearance 76 ml/min; Glucose 111 mg/dl (70-99); Magnesium 2.2 mg/dl (1.6-2.3); Potassium 4.0 mmol/L (3.5-5.1); Sodium 138 mmol/L (135-145); eGFR > 60.00
--- NOTE | 2025-01-02 05:38 | W.PN.CT ---
Addendum entered and electronically signed by Wil Arias MD 01/02/25 09:26:
I saw and examined the patient.
The PA's note was reviewed and I agree with the note.
Comment:
Pain complaints, minor dizziness when getting OOB, BB held
Hgb 9.0 - no need to transfuse currently
D/C pacing wires
D/C mediastinal CT
Diuresis
Original Note:
Today's Communication / Plan
-
Plan:
-No major issues overnight. Hemodynamically and neurologically intact without focal deficits
-Off all drips
-Still c/o lightheadedness/dizziness with standing, consider 1u PRBC with lasix to follow, h/h 9.0/24.8 (13.2/39.6 preop), plts 113, down from 132 yesterday
-Placed AM BB on hold
-Consider d/c of chest tube: med/pericardium 35/160
-Will cut temporary PW
-Cont. current meds (ASA, Plavix, Amiodarone, Lopressor, Lipitor)
-Encourage use of IS
-Wean off of O2 as tolerated
-Has right groin stitch
-OOB into chair/Ambulate
-Likely home tomorrow
Assessment / Plan
-
Assessment:
-S/P Ajit sternotomy the third intercostal space, T'd to the right/ Surgical aortic valve replacement [27 mm bioprosthesis], by Dr. El, 12/31/24, pod#2
-Severe aortic valve stenosis, functional bicuspid
-LVEF 55-60%
-Hypertension
-Hyperlipidemia
-History of PVCs and NSVT, status post ablation, 2013
-Class 1 obesity BMI of 32
-OA
-Acute postop blood loss/Anemia (stable without transfusion)
-Acute postop thrombocytopenia (stable without active bleed)
-Acute postop atelectasis
-Acute postop respiratory alkalosis
-Acute postop hypovolemia with subsequent hypervolemia
-Acute postop orthostatic hypotension
Discussed patient care with: Cardiology, Nursing, Respiratory Therapy, Pharmacy and Care Team
Subjective
Procedure
S/P Ajit sternotomy the third intercostal space, T'd to the right/ Surgical aortic valve replacement [27 mm bioprosthesis], by Dr. El, 12/31/24
-
Date of Service: January 02, 2025
c/o pleuritic chest pain, some lightheadedness/dizziness with standing yesterday
Objective Data
-
Lab Results
01/02/25 04:23
01/02/25 04:23
PT 15.2 Sec (11.4-14.6) H 01/01/25 03:16
INR 1.17 01/01/25 03:16
APTT 33.1 Sec (23.4-35.0) 12/31/24 10:34
Vital Signs
Vital Signs
Temp Pulse Resp BP Pulse Ox
98.0 F 81 20 105/53 93
01/01/25 23:00 01/02/25 04:47 01/02/25 04:47 01/02/25 04:47 01/02/25 04:47
CT Intake/Output/Weight
01/01/25 01/01/25 01/02/25
06:59 18:59 06:59
Intake Total 746.0 / 2207.8 513.8 / 633.8 120 / 633.8
Output Total 540 / 1300 1425 / 1760 335 / 1760
Balance 206.0 / 907.8 -911.2 / -1126.2 -215 / -1126.2
SaO2: 93 (RA)
Physical Exam
-
General: Awake, Oriented and AOx3
Cardiovascular: Regular rate & rhythm, No Murmurs, No Rub and No Gallop
Respiratory: Decreased Breath Sounds (at bases, otherwise clear)
Sternum: Stable
Incision: Clean, Dry, Intact and Dressing Intact
Extremities: Other (+trace edema)
Data Reviewed
-
Lab Results: Results Reviewed
Medications: Active Meds Reviewed
Chest X-Ray: Report Reviewed and Image Reviewed
ECG: Report Reviewed and Image Reviewed
[2025-01-02] MEDS: TYLENOL 1000 MG PO ×3 (05:59→20:10)
[2025-01-02] MEDS: TORADOL 15 MG IV ×2 (05:59→12:37)
--- NOTE | 2025-01-02 07:28 | PTCARENOTE ---
Assisted patient to bathroom at approx 0600. Patient with successful void, then became dizzy, lightheaded. Noticeably diaphoretic. Assisted back into chair. Vital signs checked and stable. CT PA notified.
[2025-01-02] MEDS: FEOSOL 325 MG PO (08:44)
[2025-01-02] MEDS: SENOKOT-S 1 TABLET PO ×2 (08:44→20:11)
[2025-01-02] MEDS: NEURONTIN 100 MG PO (08:44)
[2025-01-02] MEDS: LOW STRENGTH ASPIRIN 81 MG PO (08:44)
[2025-01-02] MEDS: PROTONIX 40 MG PO (08:44)
[2025-01-02] MEDS: VITAMIN C 500 MG PO (08:45)
[2025-01-02] MEDS: MAGNESIUM OXIDE 500 MG PO ×2 (08:45→20:11)
[2025-01-02] MEDS: LIDOCAINE 4% PATCH 1 PATCH TOPICAL (08:45)
[2025-01-02] MEDS: PACERONE 200 MG PO ×3 (08:45→20:12)
[2025-01-02] MEDS: LOPRESSOR 12.5 MG PO ×2 (08:45→20:11)
[2025-01-02] MEDS: BACTROBAN 2% OINTMENT 1 APPLIC NASAL ×2 (08:46→20:13)
--- NOTE | 2025-01-02 09:46 | W.PN.CD ---
Today's Communication / Plan
-
- Remains stable status-post bioprosthetic AVR.
- In sinus rhythm on telemetry; no events overnight.
- Continue routine postoperative management as directed by CT surgery.
Impression / Plan
-
Impression
Patient is a 69-year-old female with hypertension, hyperlipidemia, SVT s/p ablation 2013, Severe - s/p bio AVR on 12/31/[address] El.
Cardiology consulted for postop follow-up.
Assessment/plan
#Severe aortic stenosis s/p bio AVR
- Remains stable status-post bioprosthetic AVR.
- In sinus rhythm on telemetry; no events overnight.
- Still with some incisional pain
- Continue aspirin, atorvastatin, amiodarone, metoprolol
- Continue routine postoperative management as directed by CT surgery.
#Hypertension
-Stable/controlled.
#HLD
- stable.
- on Lipitor, continue.
Physical Exam
Vital Signs/Labs
Vital Signs
Temp Pulse Resp BP Pulse Ox
98.0 F 91 20 106/64 94
01/01/25 23:00 01/02/25 09:00 01/02/25 08:00 01/02/25 08:45 01/02/25 08:00
01/01/25 01/02/25 01/03/25
06:59 06:59 06:59
Actual Weight 81.2 kg 80.5 kg
01/02/25 04:23
01/02/25 04:23
PT 15.2 Sec (11.4-14.6) H 01/01/25 03:16
INR 1.17 01/01/25 03:16
APTT 33.1 Sec (23.4-35.0) 12/31/24 10:34
Magnesium 2.2 mg/dl (1.6-2.3) 01/02/25 04:23
Physical Exam
Constitutional: No acute distress and Comfortable
EENT: Anicteric
Cardiovascular: Rhythm & rate is regular, Pedal edema is absent, Systolic murmur absent and S1S2 is normal
Respiratory: Respiratory effort normal and Lungs clear to auscul.
GI: Soft
Neuro/Psych: AO x 3
Other: Skin (Warm, dry, intact)
Data Reviewed
-
Date of Service: January 02, 2025
EKG: Tracing Personally Visualized and interpreted (Telemetry: Sinus rhythm)
Labs: Labs Reviewed by me
Critical Care Time (in minutes): 36
--- NOTE | 2025-01-02 09:58 | PTCARENOTE ---
Received patient for 7a-7p shift. Patient AAOx3, complains of sternal pain. VSS, NSR on cardiac cath technician. Pt oob in chair for breakfast. Voided without issues, returned to bed to d/c wires and CT. Patient maintained on 3L o2 via nc, pox 94%.
Occasional productive cough, harris sputum. Medications administered without issues. Tolerating po intake. Instructed patient to call for assistance prior to ambulation, patient verbalized understanding, demonstrates use of call rincon. Will continue to
monitor.
--- NOTE | 2025-01-02 13:57 | PTCARENOTE ---
Patient reassessed, vss. V wire cut and Chest tube d/c by CTPA Lidia. Medications administered as ordered. Patient ambulatory in room with assistance. Demonstrates use of call rincon system prior to ambulation. Will continue to monitor.
[2025-01-02] MEDS: FERRLECIT 110 MG IV (14:30)
[2025-01-02] MEDS: NSS 500 IV (14:31)
[2025-01-02] MEDS: LIPITOR 20 MG PO (17:25)
[2025-01-02] MEDS: MUCINEX 1200 MG PO ×2 (17:25→20:10)
[2025-01-02] MEDS: NEURONTIN PO ×3 (17:25→20:13)
[2025-01-02] MEDS: REMOVE LIDOCAINE PATCH 1 PATCH REMOVE (20:13)
--- NOTE | 2025-01-02 22:38 | PTCARENOTE ---
assumed care of patient @ 1900. received pt laying in bed, Aox3. VSS on RA. NSR on tele, +pulses +1 edema to uppers and lowers. Lungs clear, diminished on room air satting mid 90s. -BM, passing gas. voiding clear yellow urine in hat. MSI potato chip cooker machine, R
groin puncture site IRONER, CT dressing CDI. R IJ cordis with PIV both patent. pt resting comfortably in bed w call rincon within reach .
[2025-01-03] VITALS (10 sets, daily range): BP systolic 106–155; BP diastolic 57–72; PULSE 75; O2SAT 96–97; BMI 32.6
--- NOTE | 2025-01-03 | PTCARENOTE ---
pt c/o pain, 2.5 of robbin given instead of 5 d/t dizzyness earlier today
[2025-01-03] MEDS: TORADOL 15 MG IV (01:09)
--- NOTE | 2025-01-03 01:30 | PTCARENOTE ---
pt still with pain, stat dose of toradol ordered and given
--- NOTE | 2025-01-03 04:53 | W.PN.CT ---
Today's Communication / Plan
-
Plan:
-No major issues overnight. Hemodynamically and neurologically intact without focal deficits
-Off all drips
-Still c/o lightheadedness/dizziness with standing, h/h 9.1/25.6, up from 9.0/24.8 (13.2/39.6 preop), plts 135, up from 113
-Midodrine added 01/02
-Will replete calcium
-Will hold mag oxide for mg 2.5
-Cont. current meds (ASA, Plavix, Amiodarone, Lopressor, Lipitor)
-Encourage use of IS
-Has right groin stitch
-OOB into chair/Ambulate
-Likely home tomorrow
Assessment / Plan
-
Assessment:
-S/P Ajit sternotomy the third intercostal space, T'd to the right/ Surgical aortic valve replacement [27 mm bioprosthesis], by Dr. El, 12/31/24, pod#3
-Severe aortic valve stenosis, functional bicuspid
-LVEF 55-60%
-Hypertension
-Hyperlipidemia
-History of PVCs and NSVT, status post ablation, 2013
-Class 1 obesity BMI of 32
-OA
-Acute postop blood loss/Anemia (stable without transfusion)
-Acute postop thrombocytopenia (stable without active bleed)
-Acute postop atelectasis
-Acute postop respiratory alkalosis
-Acute postop hypovolemia with subsequent hypervolemia
-Acute postop orthostatic hypotension
Discussed patient care with: Cardiology, Nursing, Respiratory Therapy, Pharmacy and Care Team
Subjective
Procedure
S/P Ajit sternotomy the third intercostal space, T'd to the right/ Surgical aortic valve replacement [27 mm bioprosthesis], by Dr. El, 12/31/24
-
Date of Service: January 03, 2025
Pt c/o incisional pain, lightheadedness and weakness
Objective Data
-
PT 15.2 Sec (11.4-14.6) H 01/01/25 03:16
INR 1.17 01/01/25 03:16
APTT 33.1 Sec (23.4-35.0) 12/31/24 10:34
Vital Signs
Vital Signs
Temp Pulse Resp BP Pulse Ox
98 F 72 16 139/70 95
01/03/25 00:00 01/02/25 22:00 01/03/25 00:00 01/02/25 20:10 01/03/25 00:00
CT Intake/Output/Weight
01/02/25 01/02/25 01/03/25
06:59 18:59 06:59
Intake Total 120 / 633.8 340 / 400 60 / 400
Output Total 335 / 1760 1175 / 1575 400 / 1575
Balance -215 / -1126.2 -835 / -1175 -340 / -1175
SaO2: 95 (RA)
Physical Exam
-
General: Awake, Oriented and AOx3
Cardiovascular: Regular rate & rhythm, No Murmurs, No Rub and No Gallop
Respiratory: Decreased Breath Sounds (at bases, otherwise clear)
Sternum: Stable
Incision: Clean, Dry, Intact and Dressing Intact
Extremities: Other (+trace edema)
Data Reviewed
-
Lab Results: Results Reviewed
Medications: Active Meds Reviewed
Chest X-Ray: Report Reviewed and Image Reviewed
ECG: Report Reviewed and Image Reviewed
--- NOTE | 2025-01-03 05:00 | PTCARENOTE ---
pt walked to bathroom and then to chair, pt states she got dizzy while in the bathroom. BP stable. Pt c/o severe 10/10 pain, pt is crying d/t pain. CTPA says ok to give 5 of robbin. call rincon within reach .
[2025-01-03] MEDS: TYLENOL 1000 MG PO ×2 (05:05→13:45)
[2025-01-03] MEDS: ROXICODONE 5 MG PO ×3 (05:06→20:18)
[2025-01-03 05:41] LABS: Hematocrit 25.6 % (37.0-47.0); Hemoglobin 9.1 g/dL (12.0-16.0); Mean Corp Hgb Conc. 35.5 g/dL (33.0-37.0); Mean Corpuscular Volume 90.5 fL (81.0-99.0); Platelet Count 135 10^3/uL (130-400); Red Cell Dist. Width 12.7 % (11.5-14.5)
[2025-01-03 05:58] LABS: Blood Urea Nitrogen 18 mg/dl (7-17); Calcium 8.1 mg/dl (8.4-10.2); Carbon Dioxide 25 mmol/L (22-30); Chloride 110 mmol/L (98-107); Estimated Creatinine Clearance 88 ml/min; Glucose 106 mg/dl (70-99); Magnesium 2.5 mg/dl (1.6-2.3); Potassium 4.1 mmol/L (3.5-5.1); Sodium 138 mmol/L (135-145); eGFR > 60.00
[2025-01-03] MEDS: CALCIUM GLUCONATE 130 MG IV (06:46)
--- NOTE | 2025-01-03 07:50 | W.PN.CD ---
Today's Communication / Plan
-
- Pain control
- OOB and ambulate
- Possible discharge
Impression / Plan
-
Impression
Patient is a 69-year-old female with hypertension, hyperlipidemia, SVT s/p ablation 2013, Severe - s/p bio AVR on 12/31/[address] El.
\\
Assessment/plan
#Severe aortic stenosis s/p bio AVR
- Remains stable status-post bioprosthetic AVR.
- In sinus rhythm on telemetry; no events overnight.
- Still with some incisional pain
- Continue aspirin, atorvastatin, amiodarone, metoprolol
- Continue routine postoperative management as directed by CT surgery.
#Hypertension
-Stable/controlled.
#HLD
- stable.
- on Lipitor, continue.
Physical Exam
Vital Signs/Labs
Vital Signs
Temp Pulse Resp BP Pulse Ox
97.8 F 82 16 106/57 95
01/03/25 04:00 01/03/25 05:08 01/03/25 04:00 01/03/25 05:08 01/03/25 04:55
01/02/25 01/03/25 01/04/25
06:59 06:59 06:59
Actual Weight 80.5 kg 80.7 kg
01/03/25 05:13
01/03/25 05:13
PT 15.2 Sec (11.4-14.6) H 01/01/25 03:16
INR 1.17 01/01/25 03:16
APTT 33.1 Sec (23.4-35.0) 12/31/24 10:34
Magnesium 2.5 mg/dl (1.6-2.3) H 01/03/25 05:13
Physical Exam
Constitutional: No acute distress and Comfortable
EENT: Anicteric and Moist mucous membranes
Cardiovascular: Rhythm & rate is regular, Pedal edema is absent and JVD pressure is normal
Respiratory: Respiratory effort normal, Lungs clear to auscul. and Wheeze Absent
GI: Soft, Distention absent, Non tender and Normal bowel sounds
Neuro/Psych: Alert, Oriented and AO x 3
Data Reviewed
-
Date of Service: January 03, 2025
Medical Decision Making: Reviewed Test Results, Test Interpretation and Review of Case with other Provider
EKG: Tracing Personally Visualized and interpreted
Echo: Report Reviewed by me
Labs: Labs Reviewed by me
Old Records: Reviewed
[2025-01-03] MEDS: BACTROBAN 2% OINTMENT 1 APPLIC NASAL ×2 (08:07→20:14)
[2025-01-03] MEDS: LOPRESSOR 12.5 MG PO ×2 (08:08→20:15)
[2025-01-03] MEDS: PACERONE 200 MG PO ×2 (08:08→15:03)
[2025-01-03] MEDS: LOW STRENGTH ASPIRIN 81 MG PO (08:08)
[2025-01-03] MEDS: PROTONIX 40 MG PO (08:08)
[2025-01-03] MEDS: FEOSOL 325 MG PO (08:08)
[2025-01-03] MEDS: VITAMIN C 500 MG PO (08:08)
[2025-01-03] MEDS: MUCINEX 1200 MG PO ×2 (08:08→20:15)
[2025-01-03] MEDS: SENOKOT-S 1 TABLET PO ×2 (08:08→20:15)
[2025-01-03] MEDS: LIDOCAINE 4% PATCH 1 PATCH TOPICAL (08:09)
[2025-01-03] MEDS: NEURONTIN PO ×2 (08:14→15:07)
[2025-01-03] MEDS: FLEXERIL 5 MG PO ×2 (08:19→20:16)
[2025-01-03] MEDS: NSS IV (08:59)
--- NOTE | 2025-01-03 09:47 | PTCARENOTE ---
Patient received from second shift supervisor RN; AAOx3, responds spontaneously to RN and follows commands; VSS; NSR on monitor; Trace B/L LE and hand edema; +2 DP and radial pulses present; Shallow respirations; FELDER; Lungs diminished at bases; Frequent,
productive cough with thick, brown sputum; Patient passing gas but complains of some constipation at this time - laxatives given as scheduled; Patient urinating in bathroom; Surgical sites intact; PIVx1 - #20 RAC; RIJ Cordis present with KVO
infusing; See nursing documentation for further information
[2025-01-03] MEDS: MILK OF MAGNESIA 30 ML PO (12:09)
--- NOTE | 2025-01-03 13:29 | PTCARENOTE ---
Patient ambulating in hallways with cardiac rehab; At times, patient complaining of pain but refusing PRN pain medication at this time; patient resting comfortably in bed
[2025-01-03] MEDS: FERRLECIT 110 MG IV (13:46)
--- NOTE | 2025-01-03 16:30 | PTCARENOTE ---
Patient ambulating in hallways with RN; Reluctant but willing to take PRN Oxycodone for pain accordingly - with good effect; Patient ambulating in room independently and resting in bed comfortably at this time
[2025-01-03] MEDS: LIPITOR 20 MG PO (17:13)
[2025-01-03] MEDS: TYLENOL 650 MG PO (20:16)
[2025-01-03] MEDS: REMOVE LIDOCAINE PATCH 1 PATCH REMOVE (20:21)
--- NOTE | 2025-01-03 20:33 | PTCARENOTE ---
assumed care of patient at 1900. Patient alert and oriented, Follows all commands, rates pain 7/10 mostly on movement. PRN pain medication given with good results. Pain now controlled. Moves all extremities without issue, some generalized
weakness noted. Normal sinus rhythm on monitor, heart rate in 80-90's, BP stable.trace edema in lower extremities. Right IJ cordis and L A/C PIV patent. Lungs sound clear and diminished bilaterally, can become dyspneic on excursion. has strong
cough. Bowel sounds present, appetite low, no BM. Voids without issue. Surgical site CDI.
[2025-01-03] MEDS: NEURONTIN 100 MG PO (22:09)
[2025-01-03] MEDS: PACERONE 400 MG PO (22:09)
[2025-01-03] MEDS: TYLENOL PO (22:32)
[2025-01-04] VITALS (11 sets, daily range): BP systolic 113–137; BP diastolic 61–101; PULSE 82–88; O2SAT 94–97; BMI 32.3
[2025-01-04 03:19] LABS: Hematocrit 25.2 % (37.0-47.0); Hemoglobin 9.0 g/dL (12.0-16.0); Mean Corp Hgb Conc. 35.7 g/dL (33.0-37.0); Mean Corpuscular Volume 92.0 fL (81.0-99.0); Platelet Count 154 10^3/uL (130-400); Red Cell Dist. Width 12.9 % (11.5-14.5)
[2025-01-04 03:47] LABS: Blood Urea Nitrogen 15 mg/dl (7-17); Calcium 8.1 mg/dl (8.4-10.2); Carbon Dioxide 28 mmol/L (22-30); Chloride 107 mmol/L (98-107); Estimated Creatinine Clearance 88 ml/min; Glucose 110 mg/dl (70-99); Magnesium 2.2 mg/dl (1.6-2.3); Potassium 4.2 mmol/L (3.5-5.1); Sodium 137 mmol/L (135-145); eGFR > 60.00
--- NOTE | 2025-01-04 04:12 | W.PN.CT ---
Today's Communication / Plan
-
Plan:
-No major issues overnight. Hemodynamically and neurologically intact without focal deficits
-Postop hypotension and orthostasis has resolved, placed Midodrine to PRN
-H/H stable @ 9.0/25.2
-Will replete calcium
-Mag oxide on hold, mg 2.2, was 2.5 yesterday
-Switched Lopressor to home Toprolo XL, increased dose to 25 BID
-Cont. current meds (ASA, Plavix, Amiodarone, Lopressor-switched to Toprol XL, Lipitor)
-D/C cordis
-F/U 2-view cxr
-Encourage use of IS
-D/C right groin stitch
-OOB into chair/Ambulate
-D/C home today
Assessment / Plan
-
Assessment:
-S/P Ajit sternotomy the third intercostal space, T'd to the right/ Surgical aortic valve replacement [27 mm bioprosthesis], by Dr. El, 12/31/24, pod#4
-Severe aortic valve stenosis, functional bicuspid
-LVEF 55-60%
-Hypertension
-Hyperlipidemia
-History of PVCs and NSVT, status post ablation, 2013
-Class 1 obesity BMI of 32
-OA
-Acute postop blood loss/Anemia (stable without transfusion)
-Acute postop thrombocytopenia (stable without active bleed)
-Acute postop atelectasis
-Acute postop respiratory alkalosis
-Acute postop hypovolemia with subsequent hypervolemia
-Acute postop orthostatic hypotension
Discussed patient care with: Cardiology, Nursing, Respiratory Therapy, Pharmacy and Care Team
Subjective
Procedure
S/P Ajit sternotomy the third intercostal space, T'd to the right/ Surgical aortic valve replacement [27 mm bioprosthesis], by Dr. El, 12/31/24
-
Date of Service: January 04, 2025
Pt c/o incisional pain, otherwise feels well. Denies further lightheadedness/dizziness
Objective Data
-
Lab Results
01/04/25 03:04
01/04/25 03:04
PT 15.2 Sec (11.4-14.6) H 01/01/25 03:16
INR 1.17 01/01/25 03:16
APTT 33.1 Sec (23.4-35.0) 12/31/24 10:34
Vital Signs
Vital Signs
Temp Pulse Resp BP Pulse Ox
98.8 F 91 18 120/67 95
01/03/25 22:00 01/04/25 03:12 01/03/25 22:00 01/04/25 03:12 01/03/25 22:00
CT Intake/Output/Weight
01/03/25 01/03/25 01/04/25
06:59 18:59 06:59
Intake Total 100 / 440 530 / 850 320 / 850
Output Total 800 / 1975
Balance -700 / -1535 530 / 850 320 / 850
SaO2: 95 (RA)
Physical Exam
-
General: Awake, Oriented and AOx3
Cardiovascular: Regular rate & rhythm, No Murmurs, No Rub and No Gallop
Respiratory: Decreased Breath Sounds (at bases, otherwise clear)
Sternum: Stable
Incision: Clean, Dry, Intact and Dressing Intact
Extremities: No Edema and Other (+trace edema)
Data Reviewed
-
Lab Results: Results Reviewed
Medications: Active Meds Reviewed
Chest X-Ray: Report Reviewed and Image Reviewed
ECG: Report Reviewed and Image Reviewed
[2025-01-04] MEDS: TYLENOL 1000 MG PO ×3 (06:08→22:01)
--- NOTE | 2025-01-04 07:11 | PTCARENOTE ---
Vital signs captured for previous shift via Via monitor.
[2025-01-04] MEDS: CALCIUM GLUCONATE 130 MG IV (07:27)
[2025-01-04] MEDS: PROTONIX 40 MG PO (07:27)
[2025-01-04] MEDS: LOW STRENGTH ASPIRIN 81 MG PO (07:27)
[2025-01-04] MEDS: VITAMIN C 500 MG PO (07:27)
[2025-01-04] MEDS: FEOSOL 325 MG PO (07:27)
[2025-01-04] MEDS: BACTROBAN 2% OINTMENT 1 APPLIC NASAL (07:27)
[2025-01-04] MEDS: MUCINEX 1200 MG PO ×2 (07:27→19:51)
[2025-01-04] MEDS: SENOKOT-S 1 TABLET PO ×2 (07:28→19:52)
[2025-01-04] MEDS: NEURONTIN 100 MG PO ×3 (07:28→22:01)
[2025-01-04] MEDS: PACERONE 200 MG PO ×3 (07:28→22:00)
[2025-01-04] MEDS: ROXICODONE 5 MG PO ×2 (07:28→22:00)
[2025-01-04] MEDS: TOPROL XL 25 MG PO (07:28)
[2025-01-04] MEDS: LIDOCAINE 4% PATCH TOPICAL (07:28)
--- NOTE | 2025-01-04 07:46 | W.PN.CD ---
Today's Communication / Plan
-
- Pain control
Impression / Plan
-
Impression
Patient is a 69-year-old female with hypertension, hyperlipidemia, SVT s/p ablation 2013, Severe - s/p bio AVR on 12/31/[address] El.
\\
Assessment/plan
#Severe aortic stenosis s/p bio AVR
- Remains stable status-post bioprosthetic AVR.
- In sinus rhythm on telemetry; no events overnight.
- Still with some incisional pain
- Continue aspirin, atorvastatin, amiodarone, metoprolol
- Continue routine postoperative management as directed by CT surgery.
#Hypertension
-Stable/controlled.
#HLD
- stable.
- on Lipitor, continue.
Physical Exam
Vital Signs/Labs
Vital Signs
Temp Pulse Resp BP Pulse Ox
98.3 F 94 17 131/70 97
01/04/25 07:22 01/04/25 07:28 01/04/25 07:22 01/04/25 07:28 01/04/25 07:22
01/03/25 01/04/25 01/05/25
06:59 06:59 06:59
Actual Weight 80.7 kg 80.1 kg
01/04/25 03:04
01/04/25 03:04
PT 15.2 Sec (11.4-14.6) H 01/01/25 03:16
INR 1.17 01/01/25 03:16
APTT 33.1 Sec (23.4-35.0) 12/31/24 10:34
Magnesium 2.2 mg/dl (1.6-2.3) 01/04/25 03:04
Physical Exam
Constitutional: No acute distress and Comfortable
EENT: Anicteric and Moist mucous membranes
Cardiovascular: Rhythm & rate is regular, Pedal edema is absent and JVD pressure is normal
Respiratory: Respiratory effort normal, Wheeze Absent and Crackles Absent
GI: Soft, Non tender and Normal bowel sounds
Neuro/Psych: Alert, Oriented and AO x 3
Data Reviewed
-
Date of Service: January 04, 2025
Medical Decision Making: Reviewed Test Results, Test Interpretation and Review of Case with other Provider
EKG: Tracing Personally Visualized and interpreted
Labs: Labs Reviewed by me
Old Records: Reviewed
[2025-01-04] MEDS: NSS IV (08:11)
[2025-01-04] MEDS: TORADOL 15 MG IV ×2 (08:14→23:57)
--- NOTE | 2025-01-04 08:25 | PTCARENOTE ---
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 NSR via cm, Sao2 @ 97% on RA. RIJ Cordis w/kvo infusing. All procedural sites stable. Patient updated to plan of care for the
day, in agreement. See work list for full assessment and interventions performed.
--- NOTE | 2025-01-04 09:56 | W.PN.UPDATE ---
Update Note
Progress Note Update
R groin stitch removed by me at bedside without incident. pt tolerated well
--- NOTE | 2025-01-04 12:36 | PTCARENOTE ---
VS obtained, assessment stable. Patient resting comfortably. Cordis d/c'd w/out incident.
--- NOTE | 2025-01-04 16:15 | PTCARENOTE ---
VS obtained, assessment stable. Patient resting comfortably, states pain controlled. Family to bedside.
[2025-01-04] MEDS: LIPITOR 20 MG PO (17:15)
[2025-01-04] MEDS: TOPROL XL 50 MG PO (19:50)
[2025-01-04] MEDS: CORDARONE 103 MG IV (19:52)
[2025-01-04] MEDS: REMOVE LIDOCAINE PATCH 1 PATCH REMOVE (19:53)
--- NOTE | 2025-01-04 20:19 | PTCARENOTE ---
Assumed care of patient at 1900, patient alert and oriented, denies pain at this time, states it hurt when she coughs. Ambulating in room without assisted. OOB to chair.Heart rate in 100-95npm, BP stable at 120/60, Trace edema bilateral. +pulses.
Amiodarone bolus given. patient tolerating PO intake, finished 100% of dinner tray. +BS, passing gas, no BM. Voiding clear yellow urine without issue. Skin surgical sites, CDI, no drainage at this time.
--- NOTE | 2025-01-04 22:07 | PTCARENOTE ---
patient back to bed, night medications given, VSS, PRN pain medication given pain 7/10 on movement and cough, otherwise tolerable.
[2025-01-04] MEDS: DILAUDID 0.25 MG IV (23:04)
[2025-01-04] MEDS: DULCOLAX 10 MG PO (23:10)
[2025-01-05] VITALS (8 sets, daily range): BP systolic 111–142; BP diastolic 56–86; PULSE 86; O2SAT 95–97; BMI 32.7
--- NOTE | 2025-01-05 05:18 | W.PN.CT ---
Today's Communication / Plan
-
Plan:
-No major issues overnight. Hemodynamically and neurologically intact without focal deficits
-Postop hypotension and orthostasis has resolved, placed Midodrine to PRN
-H/H stable @ 9.0/25.2
-Switched Lopressor to home Toprolo XL, increased dose to 50 BID, noted to be tachycardic with ambulation
-Cont. current meds (ASA, Plavix, Amiodarone, Lopressor-switched to Toprol XL, Lipitor)
-Encourage use of IS
-Right groin stitch d/c'd yesterday 01/04 without incident
-OOB into chair/Ambulate
-D/C home today
Assessment / Plan
-
Assessment:
-S/P Ajit sternotomy the third intercostal space, T'd to the right/ Surgical aortic valve replacement [27 mm bioprosthesis], by Dr. El, 12/31/24, pod#5
-Severe aortic valve stenosis, functional bicuspid
-LVEF 55-60%
-Hypertension
-Hyperlipidemia
-History of PVCs and NSVT, status post ablation, 2013
-Class 1 obesity BMI of 32
-OA
-Acute postop blood loss/Anemia (stable without transfusion)
-Acute postop thrombocytopenia (stable without active bleed)
-Acute postop atelectasis
-Acute postop respiratory alkalosis
-Acute postop hypovolemia with subsequent hypervolemia
-Acute postop orthostatic hypotension
Discussed patient care with: Cardiology, Nursing, Respiratory Therapy, Pharmacy and Care Team
Subjective
Procedure
S/P Ajit sternotomy the third intercostal space, T'd to the right/ Surgical aortic valve replacement [27 mm bioprosthesis], by Dr. El, 12/31/24
-
Date of Service: January 05, 2025
Pt c/o mild incisional pain, otherwise feels well. No BM yet. Ambulating without difficulty
Objective Data
-
Lab Results
01/04/25 03:04
01/04/25 03:04
PT 15.2 Sec (11.4-14.6) H 01/01/25 03:16
INR 1.17 01/01/25 03:16
APTT 33.1 Sec (23.4-35.0) 12/31/24 10:34
Vital Signs
Vital Signs
Temp Pulse Resp BP Pulse Ox
98.3 F 82 18 111/56 98
01/05/25 00:00 01/05/25 00:02 01/05/25 00:00 01/05/25 00:02 01/05/25 00:00
CT Intake/Output/Weight
01/04/25 01/04/25 01/05/25
06:59 18:59 06:59
Intake Total 320 / 850 770 / 1190 420 / 1190
Balance 320 / 850 770 / 1190 420 / 1190
SaO2: 98 (2L)
Physical Exam
-
General: Awake, Oriented and AOx3
Cardiovascular: Regular rate & rhythm, No Murmurs, No Rub and No Gallop
Respiratory: Decreased Breath Sounds (at bases, otherwise clear)
Sternum: Stable
Incision: Clean, Dry, Intact and Dressing Intact
Extremities: Other (+trace edema)
Data Reviewed
-
Lab Results: Results Reviewed
Medications: Active Meds Reviewed
Chest X-Ray: Report Reviewed and Image Reviewed
ECG: Report Reviewed and Image Reviewed
[2025-01-05] MEDS: MILK OF MAGNESIA 30 ML PO (05:45)
[2025-01-05] MEDS: TYLENOL 1000 MG PO (05:45)
--- NOTE | 2025-01-05 08:00 | PTCARENOTE ---
pt received from previous RN, oriented, OOB in chair. SR on the monitor, HR 70-90s. SBP 120s. palpable pulses. pt on RA, 97% POX. lungs diminished in bases. IS encouraged. pt abdomen s/n, denies n/v. +BS, no BM yet. voids. ambulates independently.
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 surgical bra in place. PIV. see worklist for VS, I&O, and assessment.
--- NOTE | 2025-01-05 08:21 | W.PN.CD ---
Today's Communication / Plan
-
- Stable for discharge
Impression / Plan
-
Impression
Patient is a 69-year-old female with hypertension, hyperlipidemia, SVT s/p ablation 2013, Severe - s/p bio AVR on 12/31/[address] El.
\\
Assessment/plan
#Severe aortic stenosis s/p bio AVR
- Remains stable status-post bioprosthetic AVR.
- In sinus rhythm on telemetry; no events overnight.
- Still with some incisional pain
- Continue aspirin, atorvastatin, amiodarone, metoprolol
- Continue routine postoperative management as directed by CT surgery.
#Hypertension
-Stable/controlled.
#HLD
- stable.
- on Lipitor, continue.
Physical Exam
Vital Signs/Labs
Vital Signs
Temp Pulse Resp BP Pulse Ox
98 F 74 16 130/79 98
01/05/25 06:26 01/05/25 06:26 01/05/25 06:26 01/05/25 05:47 01/05/25 06:26
01/04/25 01/05/25 01/06/25
06:59 06:59 06:59
Actual Weight 80.1 kg 80.9 kg
01/04/25 03:04
01/04/25 03:04
PT 15.2 Sec (11.4-14.6) H 01/01/25 03:16
INR 1.17 01/01/25 03:16
APTT 33.1 Sec (23.4-35.0) 12/31/24 10:34
Magnesium 2.2 mg/dl (1.6-2.3) 01/04/25 03:04
Physical Exam
Constitutional: No acute distress and Comfortable
EENT: Anicteric and Moist mucous membranes
Cardiovascular: Rhythm & rate is regular, Pedal edema is absent and JVD pressure is normal
Respiratory: Respiratory effort normal, Wheeze Absent and Crackles Absent
GI: Soft, Flat and Non tender
Neuro/Psych: Alert, Oriented and AO x 3
Data Reviewed
-
Date of Service: January 05, 2025
Medical Decision Making: Reviewed Test Results, Test Interpretation and Review of Case with other Provider
EKG: Tracing Personally Visualized and interpreted
Echo: Report Reviewed by me
Labs: Labs Reviewed by me
Old Records: Reviewed
[2025-01-05] MEDS: SENOKOT-S 1 TABLET PO (08:47)
[2025-01-05] MEDS: MUCINEX 1200 MG PO (08:47)
[2025-01-05] MEDS: PROTONIX 40 MG PO (08:47)
[2025-01-05] MEDS: NEURONTIN 100 MG PO (08:47)
[2025-01-05] MEDS: ROXICODONE 5 MG PO (08:47)
[2025-01-05] MEDS: TOPROL XL 50 MG PO (08:47)
[2025-01-05] MEDS: PACERONE 200 MG PO (08:47)
[2025-01-05] MEDS: LOW STRENGTH ASPIRIN 81 MG PO (08:48)
[2025-01-05] MEDS: VITAMIN C 500 MG PO (08:48)
[2025-01-05] MEDS: FEOSOL 325 MG PO (08:48)
[2025-01-05] MEDS: LIDOCAINE 4% PATCH 1 PATCH TOPICAL (08:55)
--- NOTE | 2025-01-05 08:58 | W.DCSUMMARY ---
Discharge Summary
Discharge Data
Date of Admission: 12/31/24
Date of Discharge: 01/05/25
-
Pending Results: No
Hospital Course
Primary care physician: Ana Cristina Harris
Outpatient sustainability coordinator: Pepe Hernandez
Inpatient consultants: [facility] Cardiology, pulmonary yard rigger
Procedures:
1. aortic valve replacement
Primary Diagnosis:
1. aortic stenosis
Secondary Diagnoses:
1. Hypertension
2. Hyperlipidemia
3. History of PVCs and NSVT, status post ablation
5. Class I obesity (BMI of 32)
6. Osteoporosis
7. Osteoarthritis-knees
-Acute postop blood loss/Anemia (stable without transfusion)
-Acute postop thrombocytopenia (stable without active bleed)
-Acute postop atelectasis
-Acute postop respiratory alkalosis
-Acute postop hypovolemia with subsequent hypervolemia
-Acute postop orthostatic hypotension
HPI: 61-year-old female electively was admitted on 12/31/2024 for AVR due to severe aortic stenosis
Hospital course: Patient was brought to the operating room and underwent mini sternotomy aortic valve replacement [#27 mm Inspiris bioprosthesis] by Dr. Mekhi El. For further details, please see operative note. Patient received no
intraoperative blood products and returned to CVICU on Levophed and, Precedex. Patient is extubated the day of surgery. On postoperative day 1, patient was declined and insulin infusion discontinued. Patient was transferred to telemetry status.
Patient experienced postoperative hypotension/dizziness requiring midodrine. Ventricular wires were cut chest tube was discontinued. Midodrine was weaned off on postoperative day #4 and pain was better controlled. Right IJ was discontinued right
femoral stitch was discontinued. On postoperative day 5, there was no atrial fibrillation therefore prophylactic amiodarone was discontinued. Blood pressure remained low normal range and lisinopril was held on discharge. Patient ambulated with
cardiac rehab and was deemed stable for discharge to home. Labs prior to discharge: Hb 9.0, creatinine 0.6
Home medication changes:
Stop Lisinopril as blood pressure low normal range
Discharge Plan
-
Patient Disposition: Home (Routine Discharge)
Discharge Diagnosis/Procedures: Aortic Valve replacement #27mm Inspiis (tissue valve) 12/31/24
Condition: Good
Diet: Low Cholesterol and Low Sodium
Activity: No strenuous activity
Driving Restrictions: Not until seen by your Dr
Bathing Restrictions: OK to Shower
Blood Work: CBC in 1 week
Other Services: Cardiac Rehab
Specialty Instructions: Weigh Daily- Call MD for wt gain/loss 3 lbs overnight/5 lbs in 1 week
Referrals:
CT Transitional Care Nurse [Outside] - in two to three days
Referral Note:
The Cardiothoracic Transitional Care Nurse will call you to set up a visit in 1-2 days.
Ana Cristina Harris NP [Family Provider, Family Practice] - in four to six weeks
Referral Note: Please make an apoointment in four to six weeks
Pepe Hernandez MD [Active, Cardiology] - 02/24/25 12:00 pm
Zuly Hu CRNP [Specified Professional Personl, Cardiac Surgery] - 01/28/25 1:45 pm
Prescriptions:
New
cyclobenzaprine 10 mg Tablet
5 mg PO Q8HPRN PRN (Reason: muscle spasm) Qty: 10 0RF
aspirin 81 mg Tablet,Chewable
81 mg PO DAILY Qty: 0 0RF
gabapentin 100 mg Capsule
100 mg PO TID Qty: 30 0RF
oxycodone 5 mg Tablet
5 mg PO Q4HPRN PRN (Reason: severe pain) Qty: 15 0RF
Continued
calcium polycarbophil [FiberCon] 625 mg Tablet
1,250 mg PO DAILY
omega [id number]-[id number]-fish oil [Fish Oil] 1,200 (144-216) mg Capsule
2,400 cap PO DAILY
Complex B-100 Tablet Extended Release
1 tab PO DAILY
atorvastatin 20 mg Tablet
20 mg PO QPM
metoprolol succinate 50 mg Tablet Extended Release 24 Hr
50 mg PO BID
alendronate 70 mg Tablet
70 mg PO FR
Discontinued
multivitamin Tablet
1 tab PO DAILY
Rx Instructions:
not taking
lisinopril 10 mg Tablet
10 mg PO DAILY
Discharge Orders:
Discharge Patient (As Directed); Ordered 01/05/25
Ordered By: Lidia Suh
Care Plan Goals
Care Plan Goals:
Problem: Readiness for enhanced knowledge related to diagnosis and treatment plan
Goal: Understand your diagnosis and treatment plan needs, including medications if applicable.
Instructions: Know your diagnosis, underlying causes and treatment plan options, including medications if applicable. Consult with your health care team to learn about your diagnosis and treatment plan, including medications if applicable.
Discharge Date and Time
Print Language: Mosotho
[2025-01-05] MEDS: NSS IV (09:49)
--- NOTE | 2025-01-05 12:00 | PTCARENOTE ---
pt VSS, no changes in assessment. stairs completed w/ CR. pt refused shower today.
--- NOTE | 2025-01-05 13:57 | PTCARENOTE ---
pt discharged home w/ family, discharge instructions reviewed w/ family present. home meds reviewed. question answered. IV and tele dc'd. pt dressed self. pt left w/ all belongings via wheelchair w/ volunteer escort.
== END 2025-01-05 14:14 | disposition home or self-care (01) | DRG 220 ==
LOC: CVICU 04:56
PROVIDERS: Physician Assistant Medical; ADMITTING PHYSICIAN Thoracic Surgery (Cardiothoracic Vascular Surgery); CONSULT PHYSICIAN Internal Medicine; FAMILY PHYSICIAN Nurse Practitioner Adult Health
PROC: 5A1221Z Performance of Cardiac Output, Continuous (ICD-10-PCS; 2024-12-31)
PROC: B24BZZ4 Ultrasonography of Heart with Aorta, Transesophageal (ICD-10-PCS; 2024-12-31)
PROC: 02RF08Z Replacement of Aortic Valve with Zooplastic Tissue, Open Approach (ICD-10-PCS; 2024-12-31)
DX: I35.2 Nonrheumatic aortic (valve) stenosis with insufficiency (principal); D62 Acute posthemorrhagic anemia; E87.3 Alkalosis; J98.11 Atelectasis; E78.00 Pure hypercholesterolemia, unspecified; I10 Essential (primary) hypertension; E66.811 Obesity, class 1; M81.0 Age-related osteoporosis without current pathological fracture; M17.0 Bilateral primary osteoarthritis of knee; I77.810 Thoracic aortic ectasia; D69.59 Other secondary thrombocytopenia; E86.1 Hypovolemia; I95.1 Orthostatic hypotension; E87.70 Fluid overload, unspecified; Z68.32 Body mass index [BMI] 32.0-32.9, adult; Z79.899 Other long term (current) drug therapy
CPT/HCPCS: 36415; 71045; 71046; 75573; 80048; 80053; 81003; 82248; 82330; 82565; 82805; 82810; 82947; 82962; 83036; 83735; 84132; 84302; 84520; 85014; 85018; 85025; 85027; 85049; 85610; 85730; 86850; 86900; 86901; 86920; 87070; 88304; 88311; 93005; 93880; 94002; J2916; Q9967